=== PATIENT | male | born 1940 | race African-American/Black ===

== ENCOUNTER 2020-08-02 04:06 | Emergency (ER) | payer MEDICARE, OTHER ==
[~2020-08-02] VITALS: Ht 188 cm; Wt 120.0 kg
[2020-08-02] MEDS ORDERED: IV NORMAL SALINE 1000ML BAG 1,000 ML IV ONE ×2 (04:30→05:45)
[2020-08-02 04:44] LABS: BASO % 1 % (0-3); EOS # 0.1 x10^3/uL (0.0-0.7); EOS % 2 % (0-3); HEMATOCRIT 41.2 % (39.0-53.0); HEMOGLOBIN 13.8 g/dL (13.0-17.5); LYMPH # 1.8 x10^3/uL (1.0-4.8); LYMPH % 37 % (24-48); MEAN CORPUSCULAR HEMOGLOBIN 31 pg (25-35); MEAN CORPUSCULAR HGB CONC 34 g/dL (31-37); MEAN CORPUSCULAR VOLUME 93 fL (79-100); MONO # 0.4 x10^3/uL (0.0-1.1); MONO % 8 % (0-9); NEUT # 2.5 x10^3/uL (1.8-7.7); NEUT % 52 % (31-73); PLATELET COUNT 177 x10^3/uL (140-400); RED BLOOD COUNT 4.46 x10^6/uL (4.30-5.70); WHITE BLOOD COUNT 4.8 x10^3/uL (4.0-11.0)
[2020-08-02 04:54] LABS: BILIRUBIN,URINE NEGATIVE (NEG); CLARITY,URINE CLEAR; COLOR,URINE YELLOW; NITRITE,URINE NEGATIVE (NEG); PH,URINE 5.5 (<5.0-8.0); PROTEIN,URINE NEGATIVE (NEG-TRACE); UROBILINOGEN,URINE 0.2 mg/dL (0.2 mg/dL)
[2020-08-02 04:59] LABS: CALCIUM 8.6 mg/dL (8.5-10.1); CREATININE 1.3 mg/dL (0.7-1.3); GFR 64.6; POTASSIUM 4.5 mmol/L (3.5-5.1)
[2020-08-02 05:05] LABS: BACTERIA,URINE 0 /HPF (0-FEW); RBC,URINE 0 /HPF (0-2); WBC,URINE 0 /HPF (0-4)
[2020-08-02 05:06] LABS: ALBUMIN 3.3 g/dL (3.4-5.0); ALBUMIN/GLOBULIN RATIO 0.8 (1.0-1.7); MAGNESIUM 2.6 mg/dL (1.8-2.4); TOTAL BILIRUBIN 0.1 mg/dL (0.2-1.0); TOTAL PROTEIN 7.5 g/dL (6.4-8.2)
[2020-08-02 06:08] VITALS: BP 184/86
--- NOTE | 2020-08-02 06:21 | RAD ---
CT Head W/O Contrast: History: Reason: INTOXICATED, FELL DOWN TODAY, HEAD INJURY / Spl. Instructions: / History: Comparison: none Axial images were obtained without contrast. There is moderate diffuse atrophy. There is no mass effect, extraaxial fluid collections or hydrocephalus. There is no gross bleed. Mild, patchy periventricular and subcortical white matter hypoattenuation is seen. There is no focal loss of zamudio-white matter distinction to suggest acute ischemia, i.e. stroke. Impression: No acute findings. End impression CT C-Spine without contrast: Clinical History: Reason: INTOXICATED, FELL DOWN TODAY, HEAD INJURY / Spl. Instructions: / History: Technique: Axial helical images of the cervical spine were obtained without contrast, axial coronal and sagittal reconstruction was performed. Findings: There is no loss of vertebral body stature. There is no prevertebral soft tissue swelling. The vertebral bodies are well aligned. The C1-C2 relationship is normal. The visualized osseous structures appear normal. Evaluation of the central canal is limited without contrast. There is multiple posterior disc bulges resulting in flattening of the thecal sac. There does not appear to be gross flattening of the cervical cord. There is moderate narrowing of multiple neuroforamen. Impression: No acute findings. Clinical correlation suggested. PQRS Compliance Statement: One or more of the following individualized dose reduction techniques were utilized for this examination: 1. Automated exposure control 2. Adjustment of the mA and/or kV according to patient size 3. Use of iterative reconstruction technique Electronically signed by: Parvez Grigsby III, MD (08/02/2020 6:18 AM) [facility]
--- NOTE | 2020-08-02 06:28 | PHYS DOC ---
General Adult EDM: Chief Complaint: ALCOHOL INTOXICATION HPI: HPI: Patient is a 79 year old male who was brought here from home due to alcohol intoxication and been falling. His family report the patient is on blood th inner and want him to be checked out. Patient denies any headache, no neck pain, no hip pain, no back pain, no extremity pain. Patient denies any chest pain or any trouble breathing. Patient said he is not sure why he here today. Patient admitted of drinking alcohol today. Review of Systems: Review of Systems: Constitutional: Denies fever or chills. [] Eyes: Denies change in visual acuity. [] HENT: Denies nasal congestion or sore throat. [] Respiratory: Denies cough or shortness of breath. [] Cardiovascular: Denies chest pain or edema. [] GI: Denies abdominal pain, nausea, vomiting, bloody stools or diarrhea. [] : Denies dysuria. [] Musculoskeletal: Denies back pain or joint pain. [] Integument: Denies rash. [] Neurologic: Denies headache, focal weakness or sensory changes. [] Endocrine: Denies polyuria or polydipsia. [] Lymphatic: Denies swollen glands. [] Psychiatric: Denies depression or anxiety. [] Heart Score: Risk Factors: Risk Factors: DM, Current or recent (<one month) smoker, HTN, HLP, family history of CAD, obesity. Risk Scores: Score 0 - 3: 2.5% MACE over next 6 weeks - Discharge Home Score 4 - 6: 20.3% MACE over next 6 weeks - Admit for Clinical Observation Score 7 - 10: 72.7% MACE over next 6 weeks - Early Invasive Strategies Current Medications: Current Medications Medications (Trade) Dose Ordered Sig/Anthony Start Time Stop Time Status Last Admin Dose Admin Sodium Chloride 1,000 ml @ 1,000 mls/hr 1X ONCE 08/02/20 05:45 08/02/20 06:44 Allergies: Allergies: Allergies Coded Allergies Type Severity Reaction Last Updated Verified Unable to Assess 08/02/20 No Physical Exam: PE: Constitutional: Well developed, well nourished, no acute distress, non-toxic appearance. [] HENT: Normocephalic, atraumatic, bilateral external ears normal, oropharynx moist, no oral exudates, nose normal. [] Eyes: PERRLA, EOMI, conjunctiva normal, no discharge. [] Neck: Normal range of motion, no tenderness, supple, no stridor. [] Cardiovascular:Heart rate regular rhythm, no murmur [] Lungs & Thorax: Bilateral breath sounds clear to auscultation [] Abdomen: Bowel sounds normal, soft, no tenderness, no masses, no pulsatile masses. [] Skin: Warm, dry, no erythema, no rash. [] Back: No tenderness, no CVA tenderness. [] Extremities: No tenderness, no cyanosis, no clubbing, ROM intact, no edema. [] Neurologic: Alert and awake, disoriented to place and time. He was observed mo ving all extremity without any problem. Psychologic: Affect normal, judgement normal, mood normal. [] Current Patient Data: Labs: Laboratory Tests Test 08/02/20 04:30 08/02/20 04:45 White Blood Count 4.8 x10^3/uL (4.0-11.0) Red Blood Count 4.46 x10^6/uL (4.30-5.70) Hemoglobin 13.8 g/dL (13.0-17.5) Hematocrit 41.2 % (39.0-53.0) Mean Corpuscular Volume 93 fL (79-100) Mean Corpuscular Hemoglobin 31 pg (25-35) Mean Corpuscular Hemoglobin Concent 34 g/dL (31-37) Red Cell Distribution Width 13.0 % (11.5-14.5) Platelet Count 177 x10^3/uL (140-400) Neutrophils (%) (Auto) 52 % (31-73) Lymphocytes (%) (Auto) 37 % (24-48) Monocytes (%) (Auto) 8 % (0-9) Eosinophils (%) (Auto) 2 % (0-3) Basophils (%) (Auto) 1 % (0-3) Neutrophils # (Auto) 2.5 x10^3/uL (1.8-7.7) Lymphocytes # (Auto) 1.8 x10^3/uL (1.0-4.8) Monocytes # (Auto) 0.4 x10^3/uL (0.0-1.1) Eosinophils # (Auto) 0.1 x10^3/uL (0.0-0.7) Basophils # (Auto) 0.0 x10^3/uL (0.0-0.2) Sodium Level 143 mmol/L (136-145) Potassium Level 4.5 mmol/L (3.5-5.1) Chloride Level 109 mmol/L (98-107) H Carbon Dioxide Level 28 mmol/L (21-32) Anion Gap 6 (6-14) Blood Urea Nitrogen 13 mg/dL (8-26) Creatinine 1.3 mg/dL (0.7-1.3) Estimated GFR (Cockcroft-Gault) 64.6 BUN/Creatinine Ratio 10 (6-20) Glucose Level 90 mg/dL (70-99) Calcium Level 8.6 mg/dL (8.5-10.1) Magnesium Level 2.6 mg/dL (1.8-2.4) H Total Bilirubin 0.1 mg/dL (0.2-1.0) L Aspartate Amino Transferase (AST) 17 U/L (15-37) Alanine Aminotransferase (ALT) 16 U/L (16-63) Alkaline Phosphatase 72 U/L (46-116) Troponin I Quantitative < 0.017 ng/mL (0.000-0.055) Total Protein 7.5 g/dL (6.4-8.2) Albumin 3.3 g/dL (3.4-5.0) L Albumin/Globulin Ratio 0.8 (1.0-1.7) L Ethyl Alcohol Level 309 mg/dL (0-10) H Urine Collection Type U cath Urine Color Yellow Urine Clarity Clear Urine pH 5.5 (<5.0-8.0) Urine Specific [place] <=1.005 (1.000-1.030) Urine Protein Negative mg/dL (NEG-TRACE) Urine Glucose (UA) Negative mg/dL (NEG) Urine Ketones (Stick) Negative mg/dL (NEG) Urine Blood Negative (NEG) Urine Nitrite Negative (NEG) Urine Bilirubin Negative (NEG) Urine Urobilinogen Dipstick 0.2 mg/dL (0.2 mg/dL) Urine Leukocyte Esterase Negative (NEG) Urine RBC 0 /HPF (0-2) Urine WBC 0 /HPF (0-4) Urine Squamous Epithelial Cells Occ /LPF Urine Bacteria 0 /HPF (0-FEW) Urine Mucus Slight /LPF Laboratory Tests 08/02/20 04:30 Laboratory Tests 08/02/20 04:30 EKG: EKG: [] Radiology/Procedures: Radiology/Procedures: [][facility] [address] [place] [address] IMAGING REPORT Signed PATIENT: DUDLEY WALLACE ACCOUNT: [id number] : 1940 LOCATION: ER AGE: 79 SEX: M EXAM STATUS: REG ER ORD. PHYSICIAN: JUDY KAY DO REASON: INTOXICATED, FELL DOWN TODAY, HEAD INJURY PROCEDURE: CT HEAD AND CERVICAL SPINE WO CT Head W/O Contrast: History: Reason: INTOXICATED, FELL DOWN TODAY, HEAD INJURY / Spl. Instructions: / History: Comparison: none Axial images were obtained without contrast. There is moderate diffuse atrophy. There is no mass effect, extraaxial fluid collections or hydrocephalus. There is no gross bleed. Mild, patchy periventricular and subcortical white matter hypoattenuation is seen. There is no focal loss of zamudio-white matter distinction to suggest acute ischemia, i.e. stroke. Impression: No acute findings. End impression CT C-Spine without contrast: Clinical History: Reason: INTOXICATED, FELL DOWN TODAY, HEAD INJURY / Spl. Instructions: / History: Technique: Axial helical images of the cervical spine were obtained without contrast, axial coronal and sagittal reconstruction was performed. Findings: There is no loss of vertebral body stature. There is no prevertebral soft tissue swelling. The vertebral bodies are well aligned. The C1-C2 relationship is normal. The visualized osseous structures appear normal. Evaluation of the central canal is limited without contrast. There is multiple posterior disc bulges resulting in flattening of the thecal sac. There does not appear to be gross flattening of the cervical cord. There is moderate narrowing of multiple neuroforamen. Impression: No acute findings. Clinical correlation suggested. PQRS Compliance Statement: One or more of the following individualized dose reduction techniques were utilized for this examination: 1. Automated exposure control 2. Adjustment of the mA and/or kV according to patient size 3. Use of iterative reconstruction technique Electronically signed by: Aviva Sauer III, MD (08/02/2020 6:18 AM) [facility] DICTATED and SIGNED BY: AVIVA SAUER III, MD DATE: 08/02/20 0618 Course & Med Decision Making: Course & Med Decision Making Pertinent Labs and Imaging studies reviewed. (See chart for details) Patient is a 79-year-old male who was intoxicated, fell at home. CT scan of the head and neck did not show any acute problem. Patient is awake alert at this time, his son is here who is willing to take him home. Dragon Disclaimer: Dragon Disclaimer: This electronic medical record was generated, in whole or in part, using a voice recognition dictation system. Departure Departure Impression: Primary Impression: Alcohol intoxication Disposition: 01 DC HOME SELF CARE/HOMELESS Condition: IMPROVED Referrals: NO PCP (PCP) FOLLOW UP WITH YOUR DOCTOR THIS WEEK Patient Instructions: Alcohol Intoxication JUDY KAY DO Aug 02, 2020 06:28
--- NOTE | 2020-08-03 08:47 | EKG ---
[facility] [address] [place] [address] Test Date: 2020-08-02 Test Time: 04:25:51 Pat Name: DUDLEY WALLACE Department: Room: Gender: M [employer] Operator: : 1940 Requested By: JUDY KAY Order Number: [id number] Reading MD: Measurements Intervals Bertram Rate: 65 P: ID: QRS: 7 QRSD: 78 T: 22 QT: 390 QTc: 406 Interpretive Statements IRREGULAR RHYTHM, NO P-WAVE FOUND LOW LIMB LEAD VOLTAGE NO SPECIFIC ECG ABNORMALITIES RI6.02 No previous ECG available for comparison
== END 2020-08-02 07:06 | disposition home or self-care (01) ==
LOC: ER 04:06
DX: F10.229 Alcohol dependence with intoxication, unspecified (principal)
CPT/HCPCS: 36415; 70450; 72125; 80053; 81001; 83735; 84484; 85025; 93005; 96360; 99285; G0480; J7030; P9612

== ENCOUNTER → 2020-08-23 | Outpatient (CLI) | payer MEDICARE, OTHER ==
[2020-08-02 06:08] VITALS: BP 184/86
[~2020-08-23] MED LIST: REGADENOSON 0.4 MG/5 ML DISP.SYRIN. IV ONE
--- NOTE | 2020-08-23 13:01 | RAD ---
MR#: [id number] Date of Study: 08/23/2020 Ordering Physician: KORIN ORTEGA, Referring Physician: LIUS HERNANDEZ Tech: SUKHJINDER Bermudez ARRT (R) (N) APPROVED REPORT Test Type: Pharmacological Stress Nurse/Tech: Roopa Reddy R.N. Test Indications: dyspnea Cardiac History: smokes, htn Medications: See Electronic Medical Record Medical History: See Electronic Medical Record Resting ECG: afib Resting Heart Rate: 75 bpm Resting Blood Pressure: 174/81mmHg Pretest Chest Pain: No chest pain Nurse/Tech Notes irregular rhythm, lungs CTA, SOA Consent: The procedure was explained to the patient in lay terms. Informed consent was witnessed. Nash eout was entered into [employer]. History and Stress Test performed by RT nAdres KhanR) (N) Pharm. Details Pharmacologic stress testing was performed using 0.4mg per 5ml of regadenoson given intravenously ove r 7-10 seconds. Stress Symptoms increased SOA, some chest pressure scale 5/10. resolved by end of recovery period POST EXERCISE Reason for Termination: Infusion complete Max HR: 103 bpm Max Blood Pressure: 164/93mmHg Blood Pressure response to exercise: Normal blood pressure response during stress. Heart Rate response to exercise: wnl Chest Pain: Yes. see above note Arrhythmia: No. no change from abnormal baseline of afib ST Change: No. INTERPRETATION Stress EKG Conclusion: Baseline EKG showed atrial fibrillation. Non diagnostic changes at peak stres s. No other arrhythmias. Imaging Protocol IMAGE PROTOCOL: Rest Tc-99m/stress Tc-99m 1 day Rest: Stress: Viability: Radiopharm.Tc99m UtqgyuyyxQr27k Sestamibi Dfjn93fDg 29mCi Img Date 08/23/2020 08/23/2020 Inj-Img Ljbp49koy. 60min. Rest Admin Site:IV - Left AntecubitalAdministrator:SUKHJINDER Bermudez, CORINE (R)(N) Stress Admin Site: IV - Left AntecubitalAdministrator: Shawn Alvarez, RT (R)(N) STRESS DATA End Diast. Vol.108.0mlAv. Heart Rate96.0bpm End Syst. Vol.32.0mlCO Index BSA0.0L/min Myocardial Xqyz526.0gEject. Rzytteoo51.0% Stress Rates Pk. Fill Rate5.25EDV/secLVtime Pk. Fill 181.80msec Pk. Empty Rate5.74ESV/secLVtime Pk. Eject82.51msec 1/3 Pk. Fill1.46EDV/sec Stress Scores Regional WT0.00Summed WT15.00 Regional WM0.00Summed WM1.00 Study quality was fair. Left Ventricular size was Normal at Rest and Stress. Lung uptake was . Left Ventricular ejection fraction is 69%. The rest and stress images show normal perfusion, normal contraction and thickening. LV Perf. Quant 17 Seg. SSS1.00 17 Seg. SRS1.00 17 Seg. SDS0.00 Stress Defect Extent (% LAD)0.00Rest Defect Extent (% LAD)0.00Rev. Defect Extent (% LAD)0.00 Stress Defect Extent (% LCX) 8.80Rest Defect Extent (% LCX)0.00Rev. Defect Extent (% LCX)6.30 Stress Defect Extent (% RCA)0.00Rest Defect Extent (% RCA)0.00Rev. Defect Extent (% RCA)0.00 Stress Defect Extent (% CRISTINE)1.50Rest Defect Extent (% CRISTINE)0.00Rev. Defect Extent (% CRISTINE)1.10 Conclusion 1. Regadenoson cardioisotope stress test did not show any evidence of ischemia or infarct. 2. Normal left ventricular systolic function with ejection fraction calculated at 69%. 3. Low risk for cardiac events. Signed by : Nick Clarke, Electronically Approved : 08/23/2020 13:00:39
== END ==
LOC: NM 09:33
PROVIDERS: ATTEND Internal Medicine Cardiovascular Disease
DX: I10 Essential (primary) hypertension (principal); I73.9 Peripheral vascular disease, unspecified; Z72.0 Tobacco use
CPT/HCPCS: 78452; 93017; A9500; J2785

== ENCOUNTER → 2020-08-24 | Outpatient (CLI) | payer MEDICARE, OTHER ==
[2020-08-02 06:08] VITALS: BP 184/86
--- NOTE | 2020-08-24 09:54 | CARD ---
MR#: [id number] Date of Study: 08/24/2020 Ordering Physician: KORIN ORTEGA, Referring Physician: KORIN ORTEGA, Tech: Keri Lozano [facility] APPROVED REPORT EXAM: Two-dimensional and M-mode echocardiogram with Doppler and color Doppler. Other Information Quality : GoodHR: 90bpm INDICATION Afib 2D DIMENSIONS RVDd4.3 (2.9-3.5cm)IVSd1.2 (0.7-1.1cm) Aortic Root(2D)3.6 (2.0-3.7cm)LVDd4.8 (3.9-5.9cm) LVOT Diameter2.2 (1.8-2.4cm)PWd1.2 (0.7-1.1cm) LVDs3.4 (2.5-4.0cm)FS (%) 28.6 % SV59.3 mlLVEF(%)55.0 (>50%) Aortic Valve AoV Peak Eliezer.91.2cm/Nathaniel Peak GR.3.3mmHg LVOT Peak Eliezer.96.4cm/sAVA (VMAX)4.03cm2 AI P 1/2 [id number] Pulmonary Valve PV Peak Gvylfuib00.4cm/s Tricuspid Valve TR P. [id number]/sRAP EBWHPLUS6soSl TR Peak Gr.78oeRnVODK83dzQh LEFT VENTRICLE The left ventricle is normal size. There is mild concentric left ventricular hypertrophy. Left ventri cathleen systolic function is normal. The Ejection Fraction is 55% There is normal LV segmental wall motio n. Unable to assess diastology due to Afib. RIGHT VENTRICLE The right ventricle is normal size. Systolic function is mildly reduced. ATRIA The left atrium is moderately dilated. The right atrium is moderately dilated. The interatrial septum is intact with no evidence for an atrial septal defect or patent foramen ovale as noted on 2-D or Do ppler imaging. AORTIC VALVE The aortic valve is mildly sclerotic. Mild to moderate aortic regurgitation. There is no significant aortic valvular stenosis. MITRAL VALVE The mitral valve is normal in structure and function. There is no mitral valve stenosis. Mild mitral regurgitation. TRICUSPID VALVE The tricuspid valve is normal in structure and function. Mild tricuspid regurgitation. The PA pressur e was estimated at 55-60 mmHg. PULMONIC VALVE Trace pulmonic valvular regurgitation. GREAT VESSELS The aortic root is normal in size. The ascending aorta is not well seen. The IVC is normal in size an d collapses >50% with inspiration. PERICARDIAL EFFUSION There is no evidence of significant pericardial effusion. Critical Notification Critical Value: No <Conclusion> Left ventricle systolic function is normal. The Ejection Fraction is 55% There is normal LV segmental wall motion. The left atrium is moderately dilated. Mild to moderate aortic regurgitation. Mild mitral regurgitation. Mild tricuspid regurgitation. The PA pressure was estimated at 55-60 mmHg. There is no evidence of significant pericardial effusion. Signed by : Nick Clarke, Electronically Approved : 08/24/2020 09:53:35
== END ==
LOC: ECHO 08:26
PROVIDERS: ATTEND Internal Medicine Cardiovascular Disease
DX: I48.0 Paroxysmal atrial fibrillation (principal); I08.3 Combined rheumatic disorders of mitral, aortic and tricuspid valves
CPT/HCPCS: 93306

== ENCOUNTER → 2020-09-23 | Outpatient (CLI) | payer MEDICARE, OTHER ==
--- NOTE | 2020-09-23 10:58 | RAD ---
EXAM: Abdominal aortic sonogram. HISTORY: Tobacco use. Aneurysm screening. TECHNIQUE: Sonographic imaging of the abdominal aorta was performed. COMPARISON: None. FINDINGS: The proximal abdominal aorta measures 2.7 cm in caliber. The mid abdominal aorta measures 2 .5 cm in caliber. The distal abdominal aorta measures 1.9 cm in caliber. The right common iliac arter y measures 1.1 cm in caliber and the left common iliac artery measures 1.2 cm in caliber. There is ao rtobiiliac atherosclerosis. IMPRESSION: 1. No sonographic evidence of an abdominal aortic aneurysm. 2. Aortobiiliac atherosclerosis. Electronically signed by: Kyra Marte MD (09/23/2020 10:54 AM) [id number]
--- NOTE | 2020-09-23 11:16 | RAD ---
EXAM: Bilateral lower extremity arterial Doppler sonogram. HISTORY: Pain. Atherosclerosis. TECHNIQUE: Gamez scale and color Doppler sonographic imaging of the lower extremity arteries with spec tral waveform analysis was performed. COMPARISON: None. FINDINGS: There are triphasic waveforms within the bilateral common femoral arteries and biphasic wav eforms throughout the remainder the lower extremity arteries. There are mildly elevated peak systolic velocities within the distal superficial femoral arteries, measuring 153 cm/s on the right and 154 c c/s on the left. There is no arterial occlusion. IMPRESSION: Mildly elevated peak systolic velocities within the distal superficial arteries suggestin g mild stenosis. No severe stenosis or arterial occlusion is seen. Electronically signed by: Kyra Marte MD (09/23/2020 11:11 AM) [id number]
--- NOTE | 2020-09-23 11:25 | RAD ---
EXAM: Lower extremity arterial Doppler sonogram with ankle-brachial indices (PATRICK). HISTORY: Claudication TECHNIQUE: Doppler sonographic evaluation of the lower extremities was performed and pressure reading s were assessed. FINDINGS: Right brachial pressure: 204 mmHg Left brachial pressure: 211 mmHg Resting: Right ankle pressure: 177 mmHg Right PATRICK: 1.1 Left ankle pressure: 177 mmHg Left PATRICK: 1.1 IMPRESSION: Normal bilateral ankle-brachial indices. Electronically signed by: Kyra Marte MD (09/23/2020 11:22 AM) [id number]
== END ==
LOC: US 08:55
PROVIDERS: ATTEND Internal Medicine Cardiovascular Disease
DX: I73.9 Peripheral vascular disease, unspecified (principal); Z72.0 Tobacco use; I70.0 Atherosclerosis of aorta; R06.00 Dyspnea, unspecified
CPT/HCPCS: 93922; 93925; 93978